=== PATIENT | female | born 1995 ===

== ENCOUNTER 2017-01-17 22:59 | Emergency (ER) | payer MEDICAID ==
[2017-01-18 00:10] VITALS: RESP 18
[2017-01-18] MEDS ORDERED: Oxycodone/Acetaminophen 5/325 mg Tab PO STA (00:36)
--- NOTE | 2017-01-18 00:37 | C.PDOC ---
History Of Present Illness The patient, a 21 y/o female whose PMHx includes Migraines , Vertigo, Anxiety, presents to the ED with c/o frontal headache radiating to back of head and associated with blurry visual " my eyes dry". Pt sts, takes Augmentin, Prednisone now given for sinus infection " I stop this medicine, its just makes me feel worse". Pt admits, hx of migraine headache in past and admits current headache is similar to one in past . Pt sts, was seen by Neurology in [facility] before and was on migraine medication " not in any more". Otherwise, pt denies fever, chills, denies worse headache of life, dizziness, vertigo, double vision , floaters, dyspnea, palpitation, abd. pain, N/V/D, back pain, UTI sx. pt admits , had head imaging in past with normal results. At present time, pt appears anxious. FYI: ED records review from past. Pt was seen multiple times for past 2 months due to various complaints. Pt had blood work and imaging on 12/08/16 that was normal. Time Seen by Provider: 01/18/17 00:05 Chief Complaint (Nursing): Eye Problem Past Medical History Vital Signs: Last Vital Signs Temp 97.5 F L 01/18/17 02:38 Pulse 66 01/18/17 02:38 Resp 18 01/18/17 02:38 BP 101/64 01/18/17 02:38 Pulse Ox 100 01/18/17 02:38 - Medical History PMH: Anemia (IRON DEFIENCY), Asthma, Cardia Arrhythmia (SVT? s/p ablation? "irregular heart beat"), Gastritis, Migraine Surgical History: Family History: States: Unknown Family Hx - Social History Hx Tobacco Use: No Hx Alcohol Use: No Hx Substance Use: No - Immunization History Hx Tetanus Toxoid Vaccination: No Hx Influenza Vaccination: Yes Hx Pneumococcal Vaccination: No Physical Exam - Physical Exam Appears: Well, Non-toxic, No Acute Distress Skin: Normal Color, Warm, Dry, No Rash Head: Atraumatic, Normacephalic Eye(s): bilateral: Normal Inspection, PERRL, EOMI Ear(s): Bilateral: Normal Nose: Normal, No Discharge Oral Mucosa: Moist, No Drooling Tongue: Normal Appearing Lips: Normal Appearing Throat: Normal, No Erythema, No Exudate, No Drooling Neck: Normal, Normal ROM, Supple Cardiovascular: Rhythm Regular Respiratory: Normal Breath Sounds, No Stridor, No Wheezing Gastrointestinal/Abdominal: Normal Exam, Soft, No Tenderness Back: Normal Inspection Extremity: Normal ROM, No Pedal Edema, No Deformity Neurological/Psych: Oriented x3, Normal Speech, Normal Cognition, Normal Motor, Normal Sensation, Normal Reflexes ED Course And Treatment - Laboratory Results Urine POC: Negative O2 Sat by Pulse Oximetry: 99 Pulse Ox Interpretation: Normal Progress Note: VA: R 20/25, L20/20, B/L 20/20 w/o correction. Pt was OBS in ED for 2 hours and repsorts some imrpvement in headache. On re-evaluation, pt is afebrile, hemodynamiclay stable. NOn-toxic. Ambulatory in ED with stable gait. Neurologicaly intact. UA results review- normal. Pt advised and ref. to F/u with PMD and NEurology in 2-3 days for re-eavl. return to ED if any worsening or new changes. Disposition Counseled Patient/Family Regarding: Diagnosis, Need For Followup, Rx Given - Disposition Referrals: Ara Fontenot MD [Medical Doctor] - Tad Basilio MD [Staff Provider] - Disposition: HOME/ ROUTINE Disposition Time: 01:46 Condition: STABLE Additional Instructions: Take medication as prescribed Encourage fluids Bedrest for 2 days Follow up with Neurology in 1-2 days for re-evaluation. Return to ED if any worsening or new changes. Prescriptions: traMADol [Ultram] 50 mg PO TID #10 tab Instructions: Migraine Headache (ED) - Clinical Impression Clinical Impression: Migraine
[2017-01-18] MEDS ORDERED: Oxycodone/Acetaminophen 5/325 mg Tab ONE (00:51)
[2017-01-18 01:35] LABS: RBC URINE 3 /hpf (0-3); URINE BILIRUBIN NEGATIVE (NEGATIVE); URINE BLOOD NEGATIVE (NEGATIVE); URINE COLOR Yellow (YELLOW); URINE GLUCOSE (UA) NORMAL (Normal); URINE KETONE NEGATIVE (NEGATIVE); URINE LEUKOCYTE ESTERASE NEG Leu/uL (Negative); URINE PROTEIN NEGATIVE (NEGATIVE); URINE UROBILINOGEN NORMAL mg/dL (0.2-1.0); WBC URINE 1 /hpf (0-5)
[2017-01-18 02:39] VITALS: BP 101/64; PULSE 66; TEMP 97.5
[2017-01-18 06:39] VITALS: O2SAT 99
== END 2017-01-18 02:49 | disposition home or self-care (01) ==
LOC: C.ER 22:59
DX: G43.909 Migraine, unspecified, not intractable, without status migrainosus (principal)